=== PATIENT | female | born 2000 | race Two or more races ===

== ENCOUNTER 2023-05-21 23:38 | Emergency (ER) | payer OTHER ==
[~2023-05-21] VITALS: Ht 160 cm; Wt 45.2 kg
[2023-05-22] MEDS ORDERED: IBUPROFEN 600 MG TAB PO ONE (01:30)
[2023-05-22 03:10] VITALS: BP 112/62; PULSE 79; RESP 20; TEMP 98; O2SAT 98
== END 2023-05-22 03:15 | disposition left against medical advice (07) ==
LOC: ER 23:38
DX: S13.8XXA Sprain of joints and ligaments of other parts of neck, initial encounter (principal); S33.5XXA Sprain of ligaments of lumbar spine, initial encounter; S29.012A Strain of muscle and tendon of back wall of thorax, initial encounter; S00.03XA Contusion of scalp, initial encounter; V89.2XXA Person injured in unspecified motor-vehicle accident, traffic, initial encounter; Y93.89 Activity, other specified; Y92.89 Other specified places as the place of occurrence of the external cause; Y99.8 Other external cause status
CPT/HCPCS: 70450; 72125; 72128; 72131